=== PATIENT | male | born 1945 | race Caucasian/White ===

== ENCOUNTER → 2024-01-02 07:11 | Outpatient (REF) | payer OTHER, SELFPAY | LOC: HWRCS 07:11 | PROVIDERS: ATTENDING PHYSICIAN Internal Medicine Cardiovascular Disease; FAMILY PHYSICIAN Family Medicine | DX: I25.810 Atherosclerosis of coronary artery bypass graft(s) without angina pectoris (principal); Z95.2 Presence of prosthetic heart valve; I49.3 Ventricular premature depolarization | CPT/HCPCS: 93306 ==

== ENCOUNTER → 2024-02-15 06:36 | Outpatient (REF) | payer OTHER, SELFPAY | LOC: RAD 06:36 | PROVIDERS: ATTENDING PHYSICIAN Internal Medicine Endocrinology, Diabetes & Metabolism; FAMILY PHYSICIAN Family Medicine | DX: E04.2 Nontoxic multinodular goiter (principal) | CPT/HCPCS: 76536 ==

== ENCOUNTER 2024-03-05 07:59 | Day surgery (SDC) | payer OTHER, SELFPAY ==
[2024-03-05] VITALS (16 sets, daily range): BP systolic 119–158; BP diastolic 64–102; BMI 28.7
[2024-03-05] MEDS: NSS 500 IV (08:32)
--- NOTE | 2024-03-05 12:18 | ITS.CL.PACE ---
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
Pacemaker Implant
Procedure Report:
Date of Procedure: [ ]
Procedure: Pacemaker Implantation. [ ] upper extremity venogram.
Indication: [ ]. The pacemaker is for the treatment of nonreversible symptomatic bradycardia due to [ ] sinus node dysfunction or [ ] second and/or third degree atrioventricular block.
Performing physician: Ed Lacy MD., [facility].
Implants:
Pulse Generator: Medtronic; Model# W1DR01; Serial# [id number][ ].
RA Lead: Medtronic; Model# 5076-45cm; Serial# [id number][ ].
RV Lead: Medtronic; Model# 5076-52cm; Serial# [id number][ ].
RV Lead: Medtronic; Model# 3830-69cm; Serial# [id number][ ].
Technique: A time out was performed. A 10 mL upper extremity venogram demonstrated patent [ ] left/right axillary, cephalic, and subclavian veins. The procedure site was identified. The patient was anesthetized by the anesthesia service.
Preoperative [ ] was administered. The patient was prepped and draped in the usual fashion. Local anesthetic was applied to the [ ] prepectoral subcutaneous tissue. A 3 inch incision was made along the [ ] deltopectoral groove. Dissection was
carried to the fascia. The [ ] cephalic vein was easily isolated and proximal and distal control with 2-0 Vicryl suture. Using a micropuncture needle to access the cephalic vein under direct visualization a wire was advanced into the central
circulation. A 7 Fr introducer was placed to allow two 0.35 J wires to be advanced. The leads were introduced with hemostatic peel away introducer sheaths. The RV lead was placed using utilizing the [employer] His delivery catheter ([id number]) that was
advanced to the left bundle area as confirmed by fluoroscopy in the WELSH and THOMSON projections. The lead tip was advanced. PVC morphology was reviewed. When a satisfactory location was identified the lead was screwed into position with serial turns.
After each series of turns unipolar sensed morphology and impedance, and paced morphology of V1 was analyzed. The lead was further advanced until satisfactory morphology and electrical characteristics were confirmed. The ventricular lead was
secured to the pectoralis muscle and fascia with two 0-silk sutures. The atrial lead was then placed in the right atrial appendage. 8 volt pacing did not capture the diaphragm from either lead. The atrial lead was secured to the pectoralis muscle
and fascia with two 0-silk sutures. A subcutaneous pocket was created with Bovie cautery. Hemostasis was excellent.The leads were appropriately attached to the device. The pocket was irrigated with antibiotic solution. The device and leads were
placed in the pocket. The device was secured to the pectoralis muscle and fascia with 0-silk suture to reduce the inferior and lateral migration of the device. The incision was closed in three layers with absorbable suture. Steri-strips and a
dressing were placed. Estimated blood loss was 15 ml. There were no complications. Fluoroscopy: time: 2.3 minutes and DAP 1.44 GyCM2. The device was then interrogated after skin closure.
Lead Analysis:
RA lead: P: 1.1 mV; Threshold:1.5 V @ 0.4 ms; Impedance: 470 ohms.
RV lead (bipolar): R: 12 mV; Threshold: 0.75 V @ 0.4 ms; Impedance: 860 ohms.
RV lead(unipolar): R: 7.4 mV; Threshold: 0.8 V @ 0.4 ms; Impedance: 580 ohms.
Paced QRS characteristics: V1 has Qr morphology and measures about 100 ms in duration, stim to peak V5/V6 is less than 70 ms, and R peak V6 to R peak V6 is 44 ms.
Final Programming: MVP (AAIR to DDDR) 60-130 bpm.
Conclusion: Uncomplicated Medtronic pacemaker implant. The pacing system is MRI conditional.
Recommendation: Routine post pacemaker care.
cc: Rakesh Murray MD and Sarai Ramirez DO.
--- NOTE | 2024-03-05 14:59 | W.PN.UPDATE ---
Update Note
Progress Note Update
Pt seen post PPM implant. Left ACW w/aquacel and pressure dressing, CDI, no ht/bleeding. Post EKG NSR, no acute changes. Post CXR w/stable lead position, no pneumothorax. Activity limitations reviewed w/pt. Incision check next week at [facility]. Home
today if site/tele remain stable.
[2024-03-05] MEDS: ANCEF 5 IV (15:38)
== END 2024-03-05 15:58 | disposition home or self-care (01) ==
LOC: CATH 07:59
PROVIDERS: ATTENDING PHYSICIAN Internal Medicine Cardiovascular Disease; FAMILY PHYSICIAN Family Medicine; OTHER PHYSICIAN Internal Medicine Cardiovascular Disease
DX: I44.2 Atrioventricular block, complete (principal); I49.5 Sick sinus syndrome; E11.9 Type 2 diabetes mellitus without complications; E78.5 Hyperlipidemia, unspecified; K21.9 Gastro-esophageal reflux disease without esophagitis; K76.0 Fatty (change of) liver, not elsewhere classified; I48.19 Other persistent atrial fibrillation
CPT/HCPCS: 33208; 71045; 93005; C1769; C1785; C1887; C1892; C1898; Q9967

== ENCOUNTER → 2024-12-11 13:58 | Outpatient (REF) | payer OTHER, SELFPAY | LOC: MRI 13:58 | PROVIDERS: ATTENDING PHYSICIAN Urology | DX: R97.20 Elevated prostate specific antigen [PSA] (principal) | CPT/HCPCS: 72197; 76014; 76015; A9575 ==

== ENCOUNTER → 2025-01-08 15:56 | Outpatient (REF) | payer OTHER, SELFPAY | LOC: RCS 15:56 | PROVIDERS: ATTENDING PHYSICIAN Internal Medicine Cardiovascular Disease; FAMILY PHYSICIAN Physician Assistant | DX: Z95.1 Presence of aortocoronary bypass graft (principal); Z95.2 Presence of prosthetic heart valve; I49.3 Ventricular premature depolarization; I10 Essential (primary) hypertension | CPT/HCPCS: 93306 ==